=== PATIENT | female | born 1980 | race Caucasian/White ===

== ENCOUNTER 2017-07-27 08:28 | Emergency (ER) | payer OTHER ==
[2017-07-27 08:33] VITALS: BP 142/95; PULSE 96; RESP 18; TEMP 97.9; O2SAT 95
--- NOTE | 2017-07-27 08:45 | EDPHY ---
H & P Stated Complaint: Injury to left foot. [place] ran over left foot. Time Seen by Provider: 07/27/17 08:30 HPI/ROS: Chief Complaint: Left foot injury HPI: The patient presents to the ED with complaints of left foot pain. 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 She complains of mild pain across the left mid-foot. The patient denies additional injury. She denies associated numbness or weakness. REVIEW OF SYSTEMS: Neuro: no headache, numbness, weakness Musculoskeletal: as above Skin: no abrasion or lacerations Source: Patient Exam Limitations: No limitations - Personal History LMP (Females 10-55): 8-14 Days Ago Current Tetanus Diphtheria and Acellular Pertussis (TDAP): Yes Tetanus Vaccine Date: 2007 - Medical/Surgical History Hx Asthma: No Hx Chronic Respiratory Disease: No Hx Diabetes: No Hx Cardiac Disease: Yes Hx Renal Disease: No Hx Cirrhosis: No Hx Alcoholism: No Hx HIV/AIDS: No Hx Splenectomy or Spleen Trauma: No Other PMH: medical Chiari Mqlformation, chronic PVC's, archmoid cyst and skull defect. surgery x1, tonisllectomy, tendon release R wrist, d &c with miscarriage 06/19 - Social History Smoking Status: Former smoker - Physical Exam Exam: General: No acute distress Left foot: Mild tenderness to palpation over the dorsum of the left foot, no obvious crepitus. Neuro: Sensation intact to light touch Vascular: Normal capillary refill Constitutional: Initial Vital Signs Temperature (C) 36.6 C 07/27/17 08:28 Heart Rate 96 07/27/17 08:28 Respiratory Rate 18 07/27/17 08:28 Blood Pressure 142/95 H 07/27/17 08:28 O2 Sat (%) 95 07/27/17 08:28 O2 Delivery Mode Room Air Allergies/Adverse Reactions: cephalexin monohydrate [From Keflex] Allergy (Verified 06/25/15 13:13) Vomiting dirithromycin [From Dynabac] Allergy (Verified 06/25/15 13:13) promethazine HCl [From Phenergan] Allergy (Verified 06/25/15 13:13) Home Medications: Medication Instructions Recorded Ativan 1 mg PO Q4 06/01/15 BENADRYL 06/25/15 Wellbutrin 150mg XL 06/25/15 Medical Decision Making - Diagnostics Imaging Results: Left foot x-ray: Images reviewed by myself, negative for acute fracture or dislocation. ED Course/Re-evaluation: The patient presents to the ED with tenderness across her foot after an accident at work. The patient's x-ray demonstrates no obvious fracture by my interpretation. The patient has been placed in a postop shoe. She will be given the contact number of our on-call orthopedic surgeon for any protracted pain. She is discharged home with customary aftercare instructions including icing the area and using ibuprofen as needed for pain. She should weightbear as tolerated. Differential Diagnosis: Differential diagnosis considered includes fracture, sprain, dislocation Departure - Departure Disposition: Home, Routine, Self-Care Clinical Impression: Contusion of left foot Condition: Good Instructions: Contusion in Adults (ED) Additional Instructions: 1. Weight bear as tolerated. 2. Please follow up with the orthopedic surgeon you have been referred to for any pain which persists past 3-5 days as this may be the sign of an injury not noticed on the x-ray today. Referrals: Jeanmarie العراقي MD [Medical Doctor] - As per Instructions
== END 2017-07-27 09:00 | disposition home or self-care (01) ==
DX: S90.32XA Contusion of left foot, initial encounter (principal); Z87.891 Personal history of nicotine dependence; W23.0XXA Caught, crushed, jammed, or pinched between moving objects, initial encounter; Y92.239 Unspecified place in hospital as the place of occurrence of the external cause
CPT/HCPCS: L3260

== ENCOUNTER → 2017-09-24 | Outpatient (CLI) | payer OTHER ==
[~2017-09-24] MED LIST: GADOBUTROL 10 ML VIAL IVP ONE
== END ==
LOC: FIMAGING 18:35
DX: G93.5 Compression of brain (principal)
CPT/HCPCS: A9585

== ENCOUNTER 2018-04-05 07:36 | Day surgery (SDC) | payer OTHER ==
[2018-04-05] MEDS ORDERED: LR 1,000 ML IV ONE (07:47)
[2018-04-05] MEDS ORDERED: MIDAZOLAM 2 MG/2 ML VIAL IVP ONE (08:45)
--- NOTE | 2018-04-05 08:50 | PDANEPAE ---
ANE Past Medical History - Cardiovascular History Hx Hypertension: Yes Hx Arrhythmias: No Hx Chest Pain: No Hx Coronary Artery / Peripheral Vascular Disease: No Hx CHF / Valvular Disease: No Hx Palpitations: No Cardiovascular History Comment: CHRONIC PVC'S - Pulmonary History Hx COPD: No Hx Asthma/Reactive Airway Disease: No Hx Recent Upper Respiratory Infection: No Hx Oxygen in Use at Home: No Hx Sleep Apnea: No Sleep Apnea Screening Result - Last Documented: Negative - Neurologic History Hx Cerebrovascular Accident: No Hx Seizures: No Hx Dementia: No - Endocrine History Hx Diabetes: No - Renal History Hx Renal Disorders: Yes Renal History Comment: HX OF STONES PASSED ON HER OWN - Liver History Hx Hepatic Disorders: No - Neurological & Psychiatric Hx Hx Neurological and Psychiatric Disorders: Yes Neurological / Psychiatric History Comment: BIPOLAR. ADHD. CHRONIC HEADACHES. SUBARACHNOID CYST/SKULL DEFECT - Cancer History Hx Cancer: No - Congenital Disorder History Hx Congenital Disorders: Yes Congenital History Comment: JASON DANLOS SYNDROME. CHIARI MALFORMATION - GI History Hx Gastrointestinal Disorders: Yes Gastrointestinal History Comment: SEVERE REFLUX. DYSPHAGIA - Other Health History Other Health History: ACNE. POLYCYSTIC OVARIAN DX. THROMBOCYTOPENIA. POST NASAL DRIP. ANEMIA - Chronic Pain History Chronic Pain: Yes (HEADACHES/MIGRAINES) - Surgical History Prior Surgeries: D&C 2014. RT WRIST DECOMPRESSION 2011. 04/2012. TONSILLECTOMY 2006. T&A 1998 ANE Review of Systems Review of Systems: - Exercise capacity METS (RN): 4 METS ANE Patient History - Allergies Allergies/Adverse Reactions: atorvastatin Allergy (Verified 04/02/18 11:57) BODY ACHES cephalexin monohydrate [From Keflex] Allergy (Verified 06/25/15 13:13) Vomiting dempsey Allergy (Verified 04/02/18 11:58) Vomiting dirithromycin [From Dynabac] Allergy (Verified 04/02/18 11:57) Anaphylaxis garlic Allergy (Verified 04/02/18 11:58) Diarrhea promethazine HCl [From Phenergan] Allergy (Verified 04/02/18 11:57) HALLUCINATION sulfamethoxazole [From Bactrim] Allergy (Verified 04/02/18 11:57) Rash topiramate [From Topamax] Allergy (Verified 04/02/18 11:57) Rash trazodone Allergy (Verified 04/05/18 08:09) CHEST PAIN,DIZZINESS trimethoprim [From Bactrim] Allergy (Verified 04/02/18 11:57) Rash - Home Medications Home Medications: Atarax HS 04/02/18 [Last Taken 04/04/18] Bcp HS 04/02/18 [Last Taken 04/04/18] Buspar (*) BID 04/02/18 [Last Taken 04/04/18] Diclofenac Potassium PRN 04/02/18 [Last Taken 3 Weeks Ago ~03/15/18] Diclofenac-Misoprost 50-200 Tb BID 04/02/18 [Last Taken 04/04/18] Gabapentin DAILY 04/02/18 [Last Taken 04/04/18] Herbals/Supplements -Info Only DAILY 04/02/18 [Last Taken 04/04/18] Lamictal HS 04/02/18 [Last Taken 04/03/18] Mydayis ER 25 mg Capsule DAILY 04/02/18 [Last Taken 04/04/18] Naltrexone BID 04/02/18 [Last Taken 04/03/18] Protonix BID 04/02/18 [Last Taken 04/04/18] Ranitidine HCl BID 04/02/18 [Last Taken 04/04/18] Spironolactone BID 04/02/18 [Last Taken 04/04/18] Sumatriptan PRN 04/02/18 [Last Taken 2 Weeks Ago ~03/22/18] Trileptal HS 04/02/18 [Last Taken 04/04/18] - NPO status NPO Status: no food or drink >8 hours NPO Since - Liquids (Date): 04/04/18 NPO Since - Liquids (Time): 22:30 NPO Since - Solids (Date): 04/04/18 NPO Since - Solids (Time): 19:00 - Anes Hx Anes Hx: no prior problems - Smoking Hx Smoking Status: Former smoker ANE Labs/Vital Signs - Vital Signs Blood Pressure: 122/84 Heart Rate: 86 Respiratory Rate: 18 O2 Sat (%): 96 Height: 157.48 cm Weight: 81.647 kg ANE Physical Exam - Airway Mallampati Score: Class 2 Mouth exam: normal dental/mouth exam - Pulmonary Pulmonary: no respiratory distress, no rales or rhonchi, clear to auscultation - Cardiovascular Cardiovascular: regular rate and rhythym, no murmur, rub, or gallop - ASA Status ASA Status: II ANE Anesthesia Plan Anesthesia Plan: GA with mask
[2018-04-05] MEDS ORDERED: PROPOFOL 200 MG/20 ML VIAL ONE (09:05)
[2018-04-05] MEDS ORDERED: LIDOCAINE 2% 5 ML SDV ONE (09:05)
[2018-04-05] MEDS ORDERED: LR 500 ML IV PRN (09:07)
[2018-04-05] MEDS ORDERED: DEXAMETHASONE 4 MG/ML VIAL IVP PRN (09:07)
[2018-04-05] MEDS ORDERED: DIAZEPAM 5 MG/ML 1 ML SYR IVP PRN (09:07)
[2018-04-05] MEDS ORDERED: ACETAMINOPHEN 500 MG TAB PO PRN (09:07)
[2018-04-05] MEDS ORDERED: NALOXONE HCL 0.4 MG/ML INJ IVP PRN (09:07)
--- NOTE | 2018-04-05 09:40 | GIREPORT ---
[facility] Surgical Services - Endoscopy Department Patient Name: Talia Fishman Procedure Date: 04/05/2018 8:40 AM Patient Type: Outpatient Attending MD/ ER Physician: Larry Hagan MD Procedure: Upper GI endoscopy Indications: Dysphagia, Gastro-esophageal reflux disease Providers: Larry Hagan MD Medicines: General Anesthesia Complications: No immediate complications. Description of Procedure: After obtaining informed consent, the endoscope was passed under direct vision. Throughout the procedure, the patient's blood pressure, pulse, and oxygen saturations were monitored continuously. The Endoscope was intro duced through the mouth, and advanced to the second part of duodenum. The up er GI endoscopy was accomplished without difficulty. The patient tolerated th e procedure well. Findings: The upper third of the esophagus, middle third of the esophagus and low er third of the esophagus were normal. Four biopsies were obtained in the middle third of the esophagus with cold forceps for histology and evalu ation of eosinophilic esophagitis. One benign-appearing, intrinsic stenosis was found at the gastroesophag eal junction. This stenosis was mildly severe and. The stenosis was julio c ed. A TTS dilator was passed through the scope. Dilation with an 18-19-20 mm balloon dilator was performed to 20 mm. The entire examined stomach was normal. Biopsies were taken with a cold forceps for histology. The examined duodenum was normal. Estimated Blood Loss: Estimated blood loss: none. Post Op Diagnosis: - Normal upper third of esophagus, middle third of esophagus and lower third of esophagus. - Subtle non-obstructing benign-appearing esophageal stenosis. Strictur e and entire esophagus dilated to 230 mm diameter with only minimal resistanc e. Dysphagia likely secondary to GERD induced esophageal spasm. - Normal stomach. Biopsied. - Normal examined duodenum. - Four biopsies were obtained in the middle third of the esophagus. Recommendation: - Discharge patient to home (with escort). - Patient has a contact number available for emergencies. The signs and symptoms of potential delayed complications were discussed with the pat ient. Return to normal activities tomorrow. Written discharge instructions we re provided to the patient. - Advance diet as tolerated today. - Continue present medications. - Follow an antireflux regimen indefinitely. - Await pathology results. - Return to my Physician Upper Cutter in 2 months. Attending Participation: I personally performed the entire procedure. Larry Hagan MD Larry Hagan MD 04/05/2018 9:39:30 AM This report has been signed electronicallyLarry Hagan MD Number of Addenda: 0 Note Initiated On: 04/05/2018 8:40 AM [email or web address]
--- NOTE | 2018-04-05 09:47 | POSTANESTH ---
Post Anesthetic Evaluation Cardiovascular Status: Normal, Stable, Similar to Pre-Op Cond Respiratory Status: Normal, Stable, Similar to Pre-op Cond. Level of Consciousness/Mental Status: Can Participate in Eval, Mildly Sleepy, Arousable Pain Control: Adequate, Prn Tx Ordered Nausea/Vomiting Control: Adequate, Prn Tx Ordered Complications Possibly Related to Anesthesia: None Noted
--- NOTE | 2018-04-05 10:51 | PDGENHP ---
History and Physical - Chief Complaint Dysphagia, globus, esophageal regutrgitation, weight loss. - History of Present Illness 38 yo female with chronic esophageal regurgitation, heartburn, globus/dysphagia and resultant weight loss. Unable to tolerate all foods without regurgitation. History Information - Allergies/Home Medication List Allergies/Adverse Reactions: atorvastatin Allergy (Verified 04/02/18 11:57) BODY ACHES cephalexin monohydrate [From Keflex] Allergy (Verified 06/25/15 13:13) Vomiting dempsey Allergy (Verified 04/02/18 11:58) Vomiting dirithromycin [From Dynabac] Allergy (Verified 04/02/18 11:57) Anaphylaxis garlic Allergy (Verified 04/02/18 11:58) Diarrhea promethazine HCl [From Phenergan] Allergy (Verified 04/02/18 11:57) HALLUCINATION sulfamethoxazole [From Bactrim] Allergy (Verified 04/02/18 11:57) Rash topiramate [From Topamax] Allergy (Verified 04/02/18 11:57) Rash trazodone Allergy (Verified 04/05/18 08:09) CHEST PAIN,DIZZINESS trimethoprim [From Bactrim] Allergy (Verified 04/02/18 11:57) Rash Home Medications: Atarax HS 04/02/18 [Last Taken 04/04/18] Bcp HS 04/02/18 [Last Taken 04/04/18] Buspar (*) BID 04/02/18 [Last Taken 04/04/18] Diclofenac Potassium PRN 04/02/18 [Last Taken 3 Weeks Ago ~03/15/18] Diclofenac-Misoprost 50-200 Tb BID 04/02/18 [Last Taken 04/04/18] Gabapentin DAILY 04/02/18 [Last Taken 04/04/18] Herbals/Supplements -Info Only DAILY 04/02/18 [Last Taken 04/04/18] Lamictal HS 04/02/18 [Last Taken 04/03/18] Mydayis ER 25 mg Capsule DAILY 04/02/18 [Last Taken 04/04/18] Naltrexone BID 04/02/18 [Last Taken 04/03/18] Protonix BID 04/02/18 [Last Taken 04/04/18] Ranitidine HCl BID 04/02/18 [Last Taken 04/04/18] Spironolactone BID 04/02/18 [Last Taken 04/04/18] Sumatriptan PRN 04/02/18 [Last Taken 2 Weeks Ago ~03/22/18] Trileptal HS 04/02/18 [Last Taken 04/04/18] I have personally reviewed and updated: family history, medical history, social history, surgical history - Past Medical History GERD, hypertension, hyperlipidemia Additional medical history: PSOD, Anxiety disorder, thrombocytopenia, Bipolar affective disorder. - Surgical History Reports: no pertinent surgical hx - Family History Positive for: hypertension (CHF) - Social History Smoking Status: Former smoker Review of Systems Review of Systems: ROS: 10pt was reviewed & negative except for what was stated in HPI & below Neurological: Reports: anxiety Physical Exam Physical Exam: Temp Pulse Resp BP Pulse Ox 36.5 C 75 18 152/95 H 100 04/05/18 10:17 04/05/18 09:45 04/05/18 10:01 04/05/18 10:09 04/05/18 10:10 O2 (L/minute) 1 Constitutional: no apparent distress, appears nourished Eyes: PERRL Ears, Nose, Mouth, Throat: moist mucous membranes Cardiovascular: regular rate and rhythym, no murmur, rub, or gallop Respiratory: no respiratory distress, no rales or rhonchi, clear to auscultation Gastrointestinal: normoactive bowel sounds, soft, non-tender abdomen, no palpable masses Skin: warm, normal color Neurologic: AAOx3 Psychiatric: anxious Lymph, Heme, Immunologic: no cervical LAD, no supraclavicular LAD Lab Data & Imaging Review 04/05/18 08:53 Sodium 138 mEq/L (135-145) 04/05/18 08:53 Potassium 4.2 mEq/L (3.3-5.0) 04/05/18 08:53 Chloride 101 mEq/L (97-110) 04/05/18 08:53 Carbon Dioxide 26 mEq/l (22-31) 04/05/18 08:53 Anion Gap 11 mEq/L (8-16) 04/05/18 08:53 BUN 8 mg/dL (7-23) 04/05/18 08:53 Creatinine 0.8 mg/dL (0.6-1.0) 04/05/18 08:53 Estimated GFR > 60 04/05/18 08:53 Glucose 84 mg/dL (70-100) 04/05/18 08:53 Calcium 9.8 mg/dL (8.5-10.4) 04/05/18 08:53 Assessment & Plan Assessment: Esophageal regurg, Globus/dysphagia, weight loss Plan: EGD.
[2018-04-05 11:05] VITALS: BP 127/67
== END 2018-04-05 10:40 | disposition home or self-care (01) ==
LOC: FSGY 07:36
PROVIDERS: ATTEND Internal Medicine Gastroenterology
PROC: 0DB28ZX Excision of Middle Esophagus, Via Natural or Artificial Opening Endoscopic, Diagnostic (ICD-10-PCS; principal; 2018-04-05 09:00)
PROC: 0D748ZZ Dilation of Esophagogastric Junction, Via Natural or Artificial Opening Endoscopic (ICD-10-PCS; principal; 2018-04-05 09:00)
DX: K29.50 Unspecified chronic gastritis without bleeding (principal); K22.8 Other specified diseases of esophagus
CPT/HCPCS: 43239; C1726; J2250; J2704

== ENCOUNTER → 2018-07-08 | Outpatient (CLI) | payer OTHER | LOC: CIMAGING 10:32 | PROVIDERS: ATTEND Physical Medicine & Rehabilitation | DX: M25.552 Pain in left hip (principal) | CPT/HCPCS: 73502-PO ==

== ENCOUNTER 2019-02-14 13:06 | Emergency (ER) | payer OTHER ==
--- NOTE | 2019-02-14 13:40 | EDPHY ---
H & P Time Seen by Provider: 02/14/19 13:20 HPI/ROS: CHIEF COMPLAINT: Nausea, vomiting, diarrhea, shortness of breath, body aches HISTORY OF PRESENT ILLNESS: Patient is a 38-year-old female presents emergency department multiple complaints. Her symptoms started approximately 3:00 a.m.. Patient developed episodes of diarrhea followed by nausea and vomiting. Both were nonbloody. Patient describes diffuse abdominal cramping and pain. She also describes diffuse body aches including chest discomfort. She has had mild shortness of breath since the onset of her symptoms. She has no cough. No fevers or chills. No dysuria or frequency. REVIEW OF SYSTEMS: 10 systems were reveiwed and are negative with the exception of the elements mentioned in the history of present illness. Past Medical/Surgical History: Includes Chiari malformation, arachnoid cyst chronic PVCs Past surgical history: Includes , tonsillectomy, D&C, tendon release Social history: Patient does not smoke Smoking Status: Former smoker Physical Exam: 36.6, 138/91, 106, 16, 95% on room air GENERAL: No acute distress, alert. HEENT: Eyes normal to inspection, normal pharynx, no signs of dehydration. NECK: Normal, supple. RESPIRATORY: Clear to auscultation bilaterally, no rales, rhonchi or wheezing. CVS: Regular rate and rhythm, no rubs, murmurs, or gallops. ABDOMEN: Soft, nontender, nondistended, no organomegaly. Benign BACK: Normal to inspection, no CVA tenderness. SKIN: Normal color, no rash, warm, dry. No pallor. EXTREMITIES: No pedal edema, no calf tenderness, no Homans sign or cords, no joint swelling. NEURO/PSYCH: Alert and oriented, normal mood and affect, normal motor sensory exam. Constitutional: Initial Vital Signs Temperature (C) 36.6 C 02/14/19 13:12 Heart Rate 106 H 02/14/19 13:12 Respiratory Rate 16 02/14/19 13:12 Blood Pressure 138/91 H 02/14/19 13:12 O2 Sat (%) 95 02/14/19 13:12 O2 Delivery Mode Room Air Allergies/Adverse Reactions: atorvastatin Allergy (Verified 02/14/19 13:11) BODY ACHES cephalexin monohydrate [From Keflex] Allergy (Verified 02/14/19 13:11) Vomiting dempsey Allergy (Verified 02/14/19 13:11) Vomiting dirithromycin [From Dynabac] Allergy (Verified 02/14/19 13:11) Anaphylaxis garlic Allergy (Verified 02/14/19 13:11) Diarrhea promethazine HCl [From Phenergan] Allergy (Verified 02/14/19 13:11) HALLUCINATION sulfamethoxazole [From Bactrim] Allergy (Verified 02/14/19 13:11) Rash topiramate [From Topamax] Allergy (Verified 02/14/19 13:11) Rash trazodone Allergy (Verified 02/14/19 13:11) CHEST PAIN,DIZZINESS trimethoprim [From Bactrim] Allergy (Verified 02/14/19 13:11) Rash Home Medications: Medication Instructions Recorded Atarax HS 04/02/18 Bcp HS 04/02/18 Buspar (*) BID 04/02/18 Diclofenac Potassium PRN 04/02/18 Diclofenac-Misoprost 50-200 Tb BID 04/02/18 Gabapentin DAILY 04/02/18 Herbals/Supplements -Info Only DAILY 04/02/18 Lamictal HS 04/02/18 Mydayis ER 25 mg Capsule DAILY 04/02/18 Naltrexone BID 04/02/18 Protonix BID 04/02/18 Ranitidine HCl BID 04/02/18 Spironolactone BID 04/02/18 Sumatriptan PRN 04/02/18 Trileptal HS 04/02/18 Ondansetron Odt [Zofran Odt 4 mg 4 mg PO Q4PRN PRN #7 tab 02/14/19 (*)] Medical Decision Making - Diagnostics Imaging Results: Imaging Impressions Chest X-Ray 02/14/19 13:44 Impression: Normal. ED Course/Re-evaluation: In the emergency department I discussed possible etiologies with the patient. I answered all of her questions. IV was placed. Patient was given L normal saline for hydration. She is given Zofran 4 mg IV for nausea. Laboratory studies were obtained. Chest x-ray was obtained for shortness of breath. EKG and troponin were ordered because of her chest discomfort. EKG shows sinus tachycardia 100, normal axis, normal intervals. There are no ST or T-wave abnormalities. The white count is mildly elevated at 11. Chemistry panel is notable for a slightly low CO2 at 20. Anion gap is 15. LFTs are normal except for an elevated unconjugated bilirubin at 0.6. Lipase is normal. is negative. Troponin is negative. Chest x-ray: Please refer the dictated report. Negative. I rechecked the patient. She was stable. She had no acute abdomen on repeat exam. Patient had no episodes of emesis while in the emergency department. Patient was given warnings prior to leaving. She will return worsening symptoms. Differential Diagnosis: My differential includes but is not limited to viral illness, bronchitis, pneumonia, ACS, acute CO, influenza, bacteremia, sepsis - Data Points Laboratory Results: Laboratory Results 02/14/19 14:22 02/14/19 14:22 02/14/19 02/14/19 02/14/19 14:25 14:22 14:22 WBC RBC Hgb Hct MCV MCH MCHC RDW Plt Count MPV Neut % (Auto) Lymph % (Auto) [place] % (Auto) Eos % (Auto) Baso % (Auto) Nucleat RBC Rel Count Absolute Neuts (auto) Absolute Lymphs (auto) Absolute Monos (auto) Absolute Eos (auto) Absolute Basos (auto) Absolute Nucleated RBC Immature Gran % Immature Gran # Sodium 137 mEq/L mEq/L (135-145) Potassium 4.6 mEq/L mEq/L (3.5-5.2) Chloride 102 mEq/L mEq/L (97-110) Carbon Dioxide 20 mEq/l L mEq/l (22-31) Anion Gap 15 mEq/L H mEq/L (6-14) BUN 14 mg/dL mg/dL (7-23) Creatinine 0.7 mg/dL mg/dL (0.6-1.0) Estimated GFR > 60 Glucose 102 mg/dL H mg/dL (70-100) Calcium 9.5 mg/dL mg/dL (8.5-10.4) Total Bilirubin 0.6 mg/dL mg/dL (0.1-1.4) Conjugated Bilirubin 0.6 mg/dL H mg/dL (0.0-0.5) Unconjugated Bilirubin 0.0 mg/dL mg/dL (0.0-1.1) AST 35 IU/L IU/L (14-46) ALT 31 IU/L IU/L (9-52) Alkaline Phosphatase 80 IU/L IU/L (38-126) POC Troponin I 0.03 ng/mL ng/mL (0.00-0.08) Total Protein 7.2 g/dL g/dL (6.3-8.2) Albumin 4.6 g/dL g/dL (3.5-5.0) Lipase 230 IU/L IU/L (23-300) Beta HCG, Qual NEGATIVE 02/14/19 14:22 WBC 11.96 10^3/uL H 10^3/uL (3.80-9.50) RBC 4.89 10^6/uL 10^6/uL (4.18-5.33) Hgb 14.4 g/dL g/dL (12.6-16.3) Hct 43.6 % % (38.0-47.0) MCV 89.2 fL fL (81.5-99.8) MCH 29.4 pg pg (27.9-34.1) MCHC 33.0 g/dL g/dL (32.4-36.7) RDW 12.7 % % (11.5-15.2) Plt Count 382 10^3/uL 10^3/uL (150-400) MPV 8.3 fL L fL (8.7-11.7) Neut % (Auto) 86.5 % H % (39.3-74.2) Lymph % (Auto) 8.1 % L % (15.0-45.0) [place] % (Auto) 4.0 % L % (4.5-13.0) Eos % (Auto) 0.8 % % (0.6-7.6) Baso % (Auto) 0.3 % % (0.3-1.7) Nucleat RBC Rel Count 0.0 % % (0.0-0.2) Absolute Neuts (auto) 10.34 10^3/uL H 10^3/uL (1.70-6.50) Absolute Lymphs (auto) 0.97 10^3/uL L 10^3/uL (1.00-3.00) Absolute Monos (auto) 0.48 10^3/uL 10^3/uL (0.30-0.80) Absolute Eos (auto) 0.10 10^3/uL 10^3/uL (0.03-0.40) Absolute Basos (auto) 0.04 10^3/uL 10^3/uL (0.02-0.10) Absolute Nucleated RBC 0.00 10^3/uL 10^3/uL (0-0.01) Immature Gran % 0.3 % % (0.0-1.1) Immature Gran # 0.03 10^3/uL 10^3/uL (0.00-0.10) Sodium Potassium Chloride Carbon Dioxide Anion Gap BUN Creatinine Estimated GFR Glucose Calcium Total Bilirubin Conjugated Bilirubin Unconjugated Bilirubin AST ALT Alkaline Phosphatase POC Troponin I Total Protein Albumin Lipase Beta HCG, Qual Medications Given: Discontinued Medications Sodium Chloride (Ns) 1,000 mls @ 0 mls/hr IV EDNOW ONE; Wide Open PRN Reason: Protocol Stop: 02/14/19 13:43 Last Admin: 02/14/19 14:30 Dose: 1,000 mls Ondansetron HCl (Zofran) 4 mg IVP EDNOW ONE Stop: 02/14/19 13:43 Last Admin: 02/14/19 14:30 Dose: 4 mg Point of Care Test Results: Chemistry 02/14/19 14:25 POC Troponin I 0.03 ng/mL ng/mL (0.00-0.08) Departure - Departure Disposition: Home, Routine, Self-Care Clinical Impression: Viral illness Condition: Fair Instructions: Viral Syndrome (ED) Additional Instructions: Return with increasing abdominal pain, fever, repeated vomiting or any other concerns. Referrals: Bisi Lopez, CRITICAL CARE REGISTERED NURSE [Primary Care Provider] - 3-4 days, if not improved Prescriptions: Ondansetron Odt [Zofran Odt 4 mg (*)] 4 mg PO Q4PRN PRN #7 tab PRN Reason: For Nausea & Vomiting
[2019-02-14] MEDS ORDERED: ONDANSETRON 4 MG/2 ML VIAL IVP ONE (13:42)
[2019-02-14] MEDS ORDERED: NS 1,000 ML IV ONE (13:42)
[2019-02-14 14:30] LABS: PLATELET COUNT 382 10^3/uL (150-400)
[2019-02-14 16:01] VITALS: BP 122/79
--- NOTE | 2019-02-14 21:13 | CPEKG ---
Test Reason : OPEN Blood Pressure : / mmHG Vent. Rate : 100 BPM Atrial Rate : 100 BPM P-R Int : 147 ms QRS Dur : 094 ms QT Int : 340 ms P-R-T Axes : 025 032 043 degrees QTc Int : 439 ms Sinus tachycardia Confirmed by Ayo Andrade ([id number]) on 02/14/2019 9:10:55 PM Referred By: AYO ANDRADE Confirmed By:Ayo Andrade
== END 2019-02-14 16:00 | disposition home or self-care (01) ==
DX: B34.9 Viral infection, unspecified (principal); E86.9 Volume depletion, unspecified
CPT/HCPCS: 84484-ER; 96374; J2405